=== PATIENT | male | born 1980 | race Caucasian/White ===

== ENCOUNTER 2017-05-22 22:21 | Inpatient (IN) | payer OTHER ==
[~2017-05-22] VITALS: Ht 185.4 cm; Wt 109.5 kg
--- NOTE | 2017-05-22 22:35 | NUR ---
Pt sts he had a burger earlier today and felt it not "go down correctly" Pt went to the bathroom to vomit the food up. Since then by unable to get any liquids or solids down. Resp even and unlabored. Airway open and patent. Pt resting in position of comfort for self. MD at bedside.
[2017-05-22] MEDS ORDERED: IV LACTATED RINGERS SOLUTION 1,000 ML IV ONE (22:42)
[2017-05-22] MEDS ORDERED: LORAZEPAM 2 MG/1 ML VIAL IV ONE (22:45)
[2017-05-22] MEDS ORDERED: METOCLOPRAMIDE HCL 10 MG/2 ML VIAL IV ONE (22:45)
--- NOTE | 2017-05-22 23:08 | NUR ---
Pt seen by MD. KEATING established, labs drawn and sent. Pt medicated for discomfort, willl monitor for effects of medication. Fluid bolus infusing freely to gravity. Pt resting in position of comfort for self.
[2017-05-22] MEDS ORDERED: LORAZEPAM 2 MG/1 ML VIAL ONE (23:11)
[2017-05-22] MEDS ORDERED: METOCLOPRAMIDE HCL 10 MG/2 ML VIAL ONE (23:12)
[2017-05-22 23:27] LABS: BASOPHILS % (AUTO) 0.3 % (0.0-2.0); EOSINOPHILS # (AUTO) 0.1 K/uL (0.0-0.7); EOSINOPHILS % (AUTO) 0.4 % (0.0-7.0); HEMATOCRIT 51.8 % (40-50); LYMPHOCYTES # (AUTO) 3.5 K/UL (0.8-4.8); LYMPHOCYTES % (AUTO) 27.3 % (20.5-51.5); MEAN CORPUSCULAR HEMOGLOBIN 27.4 UUG (27.0-31.0); MEAN CORPUSCULAR HGB CONC 33 g/dL (32.0-37.0); MEAN CORPUSCULAR VOLUME 83.7 FL (82.0-92.0); MONOCYTES # (AUTO) 0.9 K/UL (0.1-1.30); MONOCYTES % (AUTO) 6.8 % (0.0-11.0); NEUTROPHILS # (AUTO) 8.2 K/UL (1.8-8.9); NEUTROPHILS % (AUTO) 65.2 % (38.5-71.5); PLATELET COUNT (AUTO) 277 K/UL (150-450); RED BLOOD CELL COUNT(AUTO) 6.19 MIL/UL (4.7-6.1); WHITE BLOOD COUNT (AUTO) 12.7 K/UL (4.0-11.2)
[2017-05-22 23:45] LABS: BILIRUBIN,DIRECT 0.2 mg/dL (0.0-0.2); BILIRUBIN,TOTAL 0.9 mg/dL (0.2-1.0); CREATININE 1.1 mg/dL (0.6-1.3); POTASSIUM 3.5 mmol/L (3.5-5.1); TOTAL PROTEIN, SERUM 8.6 g/dL (6.4-8.2)
--- NOTE | 2017-05-23 00:08 | NUR ---
Report given to YASMANI Forte. Preparing to transfer pt to the floor
[2017-05-23 00:40] VITALS: BP 130/87
--- NOTE | 2017-05-23 00:45 | NUR ---
RECEIVED PATIENT IN BED FROM ED. GF/ADELA AT BEDSIDE. USHERED TO ROOM AND PLACED COMFORTABLY ON BED. ALERT AND ORIENTED TIMES 4. ABLE TO GIVE HISTORY. BODY ASSESSMENT DONE. ABLE TO MAKE NEEDS KNOWN. SAFETY INITIATED. CALL LIGHT WITHIN REACH. NEEDS ATTENDED. NO ACUTE DISTRESS NOTED. WILL REVIEW MEDICATIONS AND WILL ADMINISTER ORDERED. INSTRUCTED HOW TO USE CALL LIGHT WHEN IN NEED OF ASSISTANCE. WILL CONTINUE TO MONITOR.
[2017-05-23] MEDS ORDERED: ONDANSETRON 4 MG/2 ML VIAL IV PRN (01:00)
[2017-05-23] MEDS ORDERED: LORAZEPAM 2 MG/1 ML VIAL IV PRN (01:00)
[2017-05-23] MEDS ORDERED: POTASSIUM CHLORIDE 20 MEQ in IV D5/ 0.9% NACL 1,000 ML IV PRN (01:00)
[2017-05-23] MEDS ORDERED: HYDROMORPHONE 1 MG/1 ML DISP.SYRIN IV PRN ×2 (01:00→10:00)
[2017-05-23 05:24] VITALS: BP 116/73
--- NOTE | 2017-05-23 07:21 | NUR ---
PATIENT SLEPT INTERMITTENTLY T/O SHIFT. NO ACUTE DISTRESS NOTED. NO COMPLAINS OF PAIN. SAFETY AND COMFORT MAINTAINED T/O SHIFT. CALL LIGHT WITHIN REACH.
[2017-05-23 07:28] LABS: BASOPHILS % (AUTO) 0.2 % (0.0-2.0); EOSINOPHILS # (AUTO) 0.1 K/uL (0.0-0.7); EOSINOPHILS % (AUTO) 1.1 % (0.0-7.0); HEMOGLOBIN 15.6 G/DL (14.0-18.0); LYMPHOCYTES # (AUTO) 3.2 K/UL (0.8-4.8); LYMPHOCYTES % (AUTO) 32.4 % (20.5-51.5); MEAN CORPUSCULAR HEMOGLOBIN 28.1 UUG (27.0-31.0); MEAN CORPUSCULAR HGB CONC 33 g/dL (32.0-37.0); MEAN CORPUSCULAR VOLUME 84.3 FL (82.0-92.0); MONOCYTES # (AUTO) 0.7 K/UL (0.1-1.30); MONOCYTES % (AUTO) 6.7 % (0.0-11.0); NEUTROPHILS # (AUTO) 5.9 K/UL (1.8-8.9); NEUTROPHILS % (AUTO) 59.6 % (38.5-71.5); PLATELET COUNT (AUTO) 225 K/UL (150-450); RED BLOOD CELL COUNT(AUTO) 5.57 MIL/UL (4.7-6.1); WHITE BLOOD COUNT (AUTO) 9.9 K/UL (4.0-11.2)
[2017-05-23 07:51] LABS: CREATININE 1.3 mg/dL (0.6-1.3); POTASSIUM 3.9 mmol/L (3.5-5.1)
[2017-05-23] MEDS ORDERED: PANTOPRAZOLE SODIUM 40 MG VIAL IV SCH (09:00)
[2017-05-23] MEDS ORDERED: SUCCINYLCHOLINE CHLORIDE 200 MG/10 ML VIAL ONE (09:30)
[2017-05-23] MEDS ORDERED: IV LACTATED RINGERS SOLUTION 1,000 ML BAG MC ONE (09:30)
[2017-05-23] MEDS ORDERED: LIDOCAINE HCL 2% 20 ML VIAL MC ONE (09:30)
[2017-05-23] MEDS ORDERED: IRR STERIL WATER FOR IRR 1000 ML BOTTLE IR ONE (09:30)
[2017-05-23] MEDS ORDERED: GLYCOPYRROLATE 0.2 MG/ML VIAL MC ONE (09:30)
[2017-05-23] MEDS ORDERED: PROPOFOL 200 MG/20 ML BOTTLE IV ONE (09:30)
[2017-05-23] MEDS ORDERED: PANT40TA2 PO (11:44)
[2017-05-23] MEDS ORDERED: PANTOPRAZOLE SODIUM 40 MG VIAL IV ONE (11:45)
[2017-05-23 12:20] VITALS: BP 113/76
--- NOTE | 2017-05-23 13:20 | NUR ---
Pt has orders to dc home prior after able to tolerate pos, pt ate lunch and also had liquids able to tolerate, now dc home instructions were given to pt, able to understand all, pt is stable denies any discomfort, HL dc prior, prescription for protonix given to him, pharmacy spoke with pt and explained to him all about new med to pt, pt able to understand.
[2017-05-24] MEDS ORDERED: PANTOPRAZOLE SODIUM 40 MG TABLET.DR PO SCH (07:00)
== END 2017-05-23 13:30 | disposition home or self-care (01) | DRG 382 ==
LOC: ER 22:21 → MED 05-23 00:21
PROVIDERS: ADMIT Internal Medicine; ATTEND Internal Medicine
PROC: 0DB58ZX Excision of Esophagus, Via Natural or Artificial Opening Endoscopic, Diagnostic (ICD-10-PCS; principal; 2017-05-23 09:30)
PROC: 0DB68ZX Excision of Stomach, Via Natural or Artificial Opening Endoscopic, Diagnostic (ICD-10-PCS; principal; 2017-05-23 09:30)
DX: K22.10 Ulcer of esophagus without bleeding (principal); R13.10 Dysphagia, unspecified; R09.89 Other specified symptoms and signs involving the circulatory and respiratory systems; T17.928D Food in respiratory tract, part unspecified causing other injury, subsequent encounter; X58.XXXD Exposure to other specified factors, subsequent encounter
CPT/HCPCS: 36415; 71010; 83690; 85025; 85730; 93005; A4217; A4663; C9113; J0330; J2060; J2765; J3480; J3490; J7042; J7120